=== PATIENT | female | born 1950 | race Caucasian/White ===

== ENCOUNTER → 2018-01-23 | Outpatient (CLI) | payer OTHER ==
[~2018-01-23] MED LIST: AMBIEN 5 MG TABL5 M1 PO; APAP500 PO; ASA5UEC PO; ASPIRIN EC81 M1 PO; AZMACORT20 G1 IH; BENICAR HCT 201 EACH PO; BENTYL 20 MG TA20 M1 PO; BIOTIN10000 MC1 PO; CALCIUM; CALCIUM 600 +1 EAC5 PO; CLARITIN10 MG PO; FISH OIL 1,001000 M2 PO; FISH OIL SOFTG1 EACH PO; FISHOIL PO; FLONASE 0.05%50 MCG NASAL; GABAPENTIN100 MG PO; IMITREX100 MG PO; LEVOTHROID88 MCG PO; LEVOTHYROXINE 0.1 MG PO; LINZESS290 MCG PO; LMTHF-PYRIDOXI1 EACH SL; LOPRESSOR25 PO; LOSARTAN/HCT PO; LOVASTATIN PO; MIRALAX17 GM PO; NIACIN ER500 MG PO; NITROGLYCERIN0.4 MG SUBLING; PROTONIX40 M1 PO; SYMBICORT160 MCG/4. INH; VITAMIN D-32000 UNIT PO; VITAMIN D1000 UNI1 PO; VITAMINC500 PO; WOMEN'S MULTI1 EACH PO; ZETIA10 MG PO; [UNRECOGNIZED DRUG - OTHER] PO; [UNRECOGNIZED DRUG - OTHER] PO
== END ==
LOC: M.RAD 13:41
DX: I10 Essential (primary) hypertension (principal); J42 Unspecified chronic bronchitis; R05 Cough; R06.2 Wheezing

== ENCOUNTER → 2019-05-03 | Outpatient (CLI) | payer OTHER | LOC: M.RAD 04-26 12:26 | DX: M85.88 Other specified disorders of bone density and structure, other site (principal); R22.32 Localized swelling, mass and lump, left upper limb ==

== ENCOUNTER → 2020-03-17 | Outpatient (CLI) | payer OTHER | LOC: M.ULTRA 12:09 | PROVIDERS: ATTEND Family Medicine | DX: I73.9 Peripheral vascular disease, unspecified (principal) ==

== ENCOUNTER → 2020-06-04 | Outpatient (CLI) | payer OTHER | LOC: M.ULTRA 10:30 | PROVIDERS: ATTEND Family Medicine | DX: K76.0 Fatty (change of) liver, not elsewhere classified (principal); R79.89 Other specified abnormal findings of blood chemistry; Z90.49 Acquired absence of other specified parts of digestive tract ==

== ENCOUNTER → 2020-06-06 | Outpatient (CLI) | payer OTHER | LOC: M.MRI 12:35 | PROVIDERS: ATTEND Family Medicine | DX: M51.36 Other intervertebral disc degeneration, lumbar region (principal); I67.82 Cerebral ischemia; M48.07 Spinal stenosis, lumbosacral region; M96.1 Postlaminectomy syndrome, not elsewhere classified; M25.78 Osteophyte, vertebrae ==